=== PATIENT | male | born 1965 | race Caucasian/White ===

== ENCOUNTER 2022-01-30 16:37 | Inpatient (IN) ==
[2022-01-30 23:05] LABS: ABS Eosinophils 0.1 10^3/ul (0-0.6); ABS Lymphocytes 1.6 10^3/ul (1.0-4.8); ABS Monocytes 0.7 10^3/ul (0-0.8); ABS Neutrophils 4.2 10^3/ul (1.5-7.7); Eosinophil % 2.1 %; Hematocrit 31 % (42-52); Hemoglobin 10.4 g/dL (14.0-18.0); Lymphocyte % 23.9 %; Mean Corpuscular HGB Conc 33 g/dL (31-36); Mean Corpuscular Hemoglobin 29 pg (27-31); Mean Corpuscular Volume 87 fL (80-94); Mean Platelet Volume 6.8 fL (7.4-10.4); Platelet Count 290 10^3/uL (150-450); Red Blood Count 3.63 10^6 /uL (4.18-5.48); Red Cell Distribution Width 14 % (10-15); White Blood Count 6.6 10^3/uL (3.5-10.8)
[2022-01-30 23:15] LABS: Activated Partial Thrombo Time 29.8 seconds (26.0-38.0); INR 1.11 (0.86-1.15)
[2022-01-30 23:25] LABS: Albumin 3.5 g/dL (3.2-5.2); Albumin/Globulin Ratio 1.2 (1-3); C Reactive Protein 73.55 mg/L (<8.01); Potassium 4.3 mmol/L (3.5-5.0); Total Bilirubin 0.7 mg/dL (0.2-1.0); Total Protein 6.5 g/dL (6.4-8.9); eGFR CKD-EPI 105.6 (>60)
[2022-01-31] MEDS ORDERED: ceFAZolin 1 GM ADVAN 1 GM in NS 0.9% 50 ML 50 ML IVPB ONE (00:02)
[2022-01-31] MEDS ORDERED: Lactated Ringers 1000 ml BAG 1,000 ML IV ONE ×2 (01:13→06:01)
[2022-01-31 01:42] LABS: Magnesium 2.1 mg/dL (1.9-2.7)
[2022-01-31] MEDS ORDERED: Vancomycin per Pharmacy 1 EA NOTE FOLLOW UP SCH (02:00)
[2022-01-31] MEDS: Enoxaparin 40 MG/0.4 ML SYR SUBCUT SCH (02:02)
[2022-01-31] MEDS ORDERED: Vancomycin 1,500 MG in NS 0.9% 250 ml 250 ML IVPB ONE (02:30)
[2022-01-31] MEDS ORDERED: ceFAZolin 2 GM in NS PREMIX 2 GM/100 ML BAG IVPB SCH (08:00)
[2022-01-31] MEDS: Buprenorp/Nalox 8-2 MG SL TAB PO SCH ×2 (09:22→20:08)
[2022-01-31] MEDS: ceFAZolin 2 GM PREMIX 2 GM/100 ML BAG IVPB SCH ×2 (09:22→09:39)
[2022-01-31] MEDS ORDERED: ceFAZolin 2 GM PREMIX 2 G/50 ML BAG IVPB SCH (09:30)
[2022-01-31] MEDS: Vancomycin 1000 MG in NS 0.9% 250 ML IVPB SCH ×3 (12:39→20:49)
[2022-01-31 14:26] LABS: HIV 4th Generation Nonreactive (Nonreactive)
[2022-01-31 15:52] LABS: Urine Appearance Clear; Urine Bilirubin Negative (Negative); Urine Blood Negative (Negative); Urine Color Yellow; Urine Glucose Negative (Negative); Urine Ketones Negative (Negative); Urine Nitrite Negative (Negative); Urine Protein Negative (Negative); Urine Specific Gravity 1.017 (1.002-1.030); Urine Urobilinogen Positive (Negative)
[2022-01-31] MEDS: Nicotine PATCH 14 MG/24 HR PATCH TRANSDERM SCH (20:08)
[2022-01-31 22:57] LABS: Ferritin 59.9 ng/mL (24-336)
[2022-01-31 23:00] LABS: Folate 18.07 ng/mL (5.90-24.80)
[2022-02-01] MEDS: Enoxaparin 40 MG/0.4 ML SYR SUBCUT SCH (03:13)
[2022-02-01] MEDS: Vancomycin 1000 MG in NS 0.9% 250 ML IVPB SCH ×2 (03:18→13:32)
[2022-02-01 05:02] LABS: ABS Basophils 0.1 10^3/ul (0-0.2); ABS Eosinophils 0.2 10^3/ul (0-0.6); ABS Lymphocytes 1.6 10^3/ul (1.0-4.8); ABS Monocytes 0.6 10^3/ul (0-0.8); ABS Neutrophils 2.8 10^3/ul (1.5-7.7); Eosinophil % 3.2 %; Hematocrit 31 % (42-52); Hemoglobin 10.5 g/dL (14.0-18.0); Lymphocyte % 30.5 %; Mean Corpuscular HGB Conc 34 g/dL (31-36); Mean Corpuscular Hemoglobin 30 pg (27-31); Mean Corpuscular Volume 87 fL (80-94); Mean Platelet Volume 7.4 fL (7.4-10.4); Nucleated Red Blood Cells % 0.1; Platelet Count 251 10^3/uL (150-450); Red Blood Count 3.56 10^6 /uL (4.18-5.48); Red Cell Distribution Width 13 % (10-15); White Blood Count 5.2 10^3/uL (3.5-10.8)
[2022-02-01 05:20] LABS: Calcium 7.9 mg/dL (8.6-10.3); Potassium 4.3 mmol/L (3.5-5.0)
[2022-02-01] MEDS: Buprenorp/Nalox 8-2 MG SL TAB PO SCH (09:06)
[2022-02-01] MEDS ORDERED: Vancomycin Trough Check NOTE FOLLOW UP ONE (11:30)
[2022-02-01 11:53] VITALS: BP 101/63
[2022-02-01] MEDS: Nicotine PATCH 14 MG/24 HR PATCH TRANSDERM SCH (13:31)
== END 2022-02-01 16:00 | disposition home or self-care (01) | DRG 383 ==
LOC: ED 16:37 → INTOOBSV 01-31 01:03 → EDHOLD 01-31 01:03 → SUATTDRO 01-31 01:03 → OBSVTOIN 01-31 01:03 → EDHOLD 01-31 11:02 → MED 01-31 12:17 → UNDODISIN 02-01 16:01
PROVIDERS: ADMIT Internal Medicine; ATTEND Internal Medicine